=== PATIENT | male | born 1980 | race Caucasian/White ===

== ENCOUNTER 2016-12-28 20:00 | Emergency (ER) | payer OTHER ==
--- NOTE | 2016-12-28 20:29 | UC ---
Abdominal Pain Male HPI - History of Current Complaint Stated Complaint: ABDOMINAL PAIN/CHILLS Time Seen by Provider: 12/28/16 20:14 Hx Obtained From: Patient Onset/Duration: Sudden Onset - @ 2:30 AM burning senstion lower in the stomach, now moving up., Worse Since - onset. Severity Initially: Moderate Severity Currently: Moderate Location: Suprapubic Radiates: No Character: Burning, Sharp Aggravating Factor(s):: Movement Alleviating Factor(s): Rest - lying down. Associated Signs And Symptoms: Positive: Diaphoresis, Nausea. Negative: Urinary Symptoms, Vomiting, Diarrhea - Risk Factors Testicular Torsion: Negative - Allergies/Home Medications Allergies/Adverse Reactions: Allergies Allergy/AdvReac Type Severity Reaction Status Date / Time No Known Allergies Allergy Verified 12/28/16 20:10 Home Medications: Home Medications Gabapentin CAP(*) [Neurontin 400 mg CAP(*)] 800 mg PO DAILY 12/28/16 [History Confirmed 12/28/16] Naltrexone (NF) 50 mg PO DAILY 12/28/16 [History Confirmed 12/28/16] QUEtiapine XR TAB* [Seroquel Xr TAB*] 200 mg PO BEDTIME 12/28/16 [History Confirmed 12/28/16] PMH/Surg Hx/FS Hx/Imm Hx Psychological History Of: Reports: Anxiety - with PTSD, Bipolar Disorder - Surgical History Surgical History: None - Family History Known Family History: Negative: Cardiac Disease, Hypertension, Diabetes - Social History Occupation: Student Lives: With Family Alcohol Use: None Substance Use Type: Prescribed Smoking Status (MU): Light Every Day Tobacco Smoker Type: Cigars Amount Used/How Often: 3-4 cigars daily Length of Time of Smoking/Using Tobacco: 9 Years Have You Smoked in the Last Year: Yes Household Exposure Type: Cigarettes Cessation Counseling: Patient Advised to Stop Review of Systems Constitutional: Chills Gastrointestinal: Abdominal Pain, Other - decreased appetite. All Other Systems Reviewed And Are Negative: Yes Physical Exam Triage Information Reviewed: Yes Appearance: Well-Nourished, Ill-Appearing, Pain Distress - mild Vital Signs: Initial Vital Signs Temp 97 F 12/28/16 20:14 Pulse 63 12/28/16 20:14 Resp 20 12/28/16 20:14 BP 114/84 12/28/16 20:14 Pulse Ox 98 05/21/17 20:14 Vital Signs Reviewed: Yes ENT: Positive: Pharynx normal Neck exam: Normal Respiratory Exam: Normal Cardiovascular Exam: Normal Abdomen Description: Positive: No Organomegaly, Soft. Negative: Nontender - tender LLQ, McBurney's Point Tenderness, Peritoneal Signs Bowel Sounds: Positive: Present Musculoskeletal Exam: Normal Neurological Exam: Normal Psychological Exam: Normal Skin Exam: Normal Abd Pain Male Course/Dx - Differential Dx/Clinical Impression Provider Diagnoses: Acute diverticulitis Discharge - Discharge Plan Condition: Stable Disposition: HOME Prescriptions: Metronidazole [Flagyl 500 MG TAB] 500 mg PO TID #30 tab Sulfamethox/Trimethoprim DS* [Bactrim DS 800/160 TAB*] 1 tab PO BID #20 tab Patient Education Materials: Diverticulitis (ED), Sulfamethoxazole/ Trimethoprim (By mouth), Metronidazole (By mouth) Referrals: Non Staff,Doctor [Primary Care Provider] - 2 Days (recheck to see if CT is needed.)
[2016-12-28 20:36] VITALS: BP 114/84
[2016-12-28] MEDS ORDERED: Sulfamethox/Trimethoprim DS 800/160* TAB PO ONE ×2 (20:49→21:10)
[2016-12-28] MEDS ORDERED: metroNIDAZOLE TAB* 250 MG PO ONE ×2 (20:50→21:10)
[2016-12-28] MEDS: Ondansetron ODT TAB* 4 MG PO ONE ×2 (21:31→21:32)
== END 2016-12-28 21:36 | disposition home or self-care (01) ==
LOC: UCCORT 20:00
DX: K57.92 Diverticulitis of intestine, part unspecified, without perforation or abscess without bleeding (principal); F17.290 Nicotine dependence, other tobacco product, uncomplicated
CPT/HCPCS: 99213; A9270-GY; G0463

== ENCOUNTER 2017-02-05 17:58 | Emergency (ER) | payer OTHER ==
[2017-02-05 18:52] VITALS: BP 122/90
--- NOTE | 2017-02-05 19:49 | UC ---
UC General HPI - HPI Summary HPI Summary: ran out of seroquel 4 days ago cannot see [facility] provider for 4 weeks has not been able to sleep - History of Current Complaint Chief Complaint: UCMedRefill Stated Complaint: MEDICATION REQUEST Time Seen by Provider: 02/05/17 19:49 Hx Obtained From: Patient Onset/Duration: Gradual Onset, Lasting Days - 4, Still Present Timing: Constant Onset Severity: Moderate Current Severity: Moderate Associated Signs & Symptoms: Positive: Other - insomnia - Allergy/Home Medications Allergies/Adverse Reactions: Allergies Allergy/AdvReac Type Severity Reaction Status Date / Time No Known Allergies Allergy Verified 02/05/17 18:52 Home Medications: Home Medications Ibuprofen TAB* [Motrin TAB* 800 MG] 800 mg PO Q6H PRN 02/05/17 [History Confirmed 02/05/17] diPHENhydraMINE PO* [Benadryl PO 25 MG TAB*] 50 mg PO BEDTIME PRN 02/05/17 [ History Confirmed 02/05/17] PMH/Surg Hx/FS Hx/Imm Hx Previously Healthy: No Psychological History: Bipolar Disorder - Surgical History Surgical History: None - Family History Known Family History: Negative: Cardiac Disease, Hypertension, Diabetes - Social History Occupation: Student Lives: With Family Alcohol Use: None Substance Use Type: Marijuana Smoking Status (MU): Light Every Day Tobacco Smoker Type: Cigars Amount Used/How Often: 3-4 cigars daily Length of Time of Smoking/Using Tobacco: 10 Years Have You Smoked in the Last Year: Yes Household Exposure Type: Cigarettes Cessation Counseling: Patient Advised to Stop Review of Systems Constitutional: Negative Skin: Negative Eyes: Negative ENT: Negative Respiratory: Negative Cardiovascular: Negative Gastrointestinal: Negative Genitourinary: Negative Motor: Negative Neurovascular: Negative Musculoskeletal: Negative Neurological: Negative Psychological: Anxious, Other - unable to sleep All Other Systems Reviewed And Are Negative: Yes Physical Exam Triage Information Reviewed: Yes Appearance: Well-Appearing, No Pain Distress, Well-Nourished Vital Signs: Initial Vital Signs Temp 98.2 F 02/05/17 18:44 Pulse 64 02/05/17 18:44 Resp 16 02/05/17 18:44 BP 122/90 02/05/17 18:44 Pulse Ox 100 02/05/17 18:44 Vital Signs Reviewed: Yes Eye Exam: Normal Eyes: Positive: Conjunctiva Clear ENT Exam: Normal ENT: Positive: Normal ENT inspection, Hearing grossly normal. Negative: Nasal congestion, Nasal drainage, Trismus, Muffled/hoarse voice Dental Exam: Normal Neck exam: Normal Neck: Positive: Supple, Nontender Respiratory Exam: Normal Respiratory: Positive: Chest non-tender, No respiratory distress, No accessory muscle use Cardiovascular Exam: Normal Cardiovascular: Positive: RRR, Pulses Normal, Brisk Capillary Refill Musculoskeletal Exam: Normal Musculoskeletal: Positive: Strength Intact, ROM Intact, No Edema Neurological Exam: Normal Neurological: Positive: Alert, Muscle Tone Normal Psychological Exam: Normal Skin Exam: Normal Course/Dx - Course Course Of Treatment: confirmed last seroquel refill was 12/29/16 meds refilled follow with pcp, Provider as planned - Differential Dx - Multi-Symptom Differential Diagnoses: Other - Bipolar Disorder Provider Diagnoses: Med Refill for Bipolar Disorder-Stable Discharge - Discharge Plan Condition: Stable Disposition: HOME Prescriptions: QUEtiapine XR TAB* [SEROquel Xr TAB*] 200 mg PO BEDTIME #30 tab.xr Patient Education Materials: Insomnia (ED) Referrals: Michelle Morrow MD [Primary Care Provider] - If Needed
== END 2017-02-05 20:09 | disposition home or self-care (01) ==
LOC: UCCORT 17:58
DX: Z76.0 Encounter for issue of repeat prescription (principal); F31.9 Bipolar disorder, unspecified; Z72.0 Tobacco use
CPT/HCPCS: 99212; G0463